=== PATIENT | female | born 1995 | race Caucasian/White ===

== ENCOUNTER → 2016-10-28 | Outpatient (CLI) | payer OTHER ==
--- NOTE | 2016-10-28 11:53 | PCVCIMAG ---
APPROVED REPORT Study performed: 10/28/2016 08:56:33 EXAM: Comprehensive 2D, Doppler, and color-flow Echocardiogram Patient Location: Echo lab Status: routine Other Information Study Quality: Good Indications Palpitations Chest Pain connective tissue disorder 2D Dimensions IVSd: 6.70 (7-11mm)LVOT Diam: 20.15 (18-24mm) LVDd: 39.82 mm PWd: 7.64 (7-11mm) LVDs: 23.69 (25-40mm) Left Atrium: 24.45 (27-40mm) Aortic Root: 21.17 mm LV Single Plane 4CH: 53.69 % LV Single Plane 2CH: 61.16 %Wilkins's LVEF: 57.42 % Biplane EF: 58.3 % Volumes Left Atrial Volume (Systole) Single Plane 4CH: 30.85 mLSingle Plane 2CH: 24.24 mL LA ESV Index: 17.00 mL/m2 Aortic Valve AoV Peak Fred.: 1.32 m/s AO Peak Gr.: 6.95 mmHgLVOT Max P.91 mmHg LVOT Max V: 0.85 m/s RIKI Vmax: 2.06 cm2 Mitral Valve E/A Ratio: 1.5 MV Decel. Time: 154.01 ms MV E Max Fred.: 1.20 m/s MV A Fred.: 0.82 m/s IVRT: 58.82 ms Pulmonary Valve PV Peak Fred.: 0.82 m/sPV Peak Gr.: 2.68 mmHg Pulmonary Vein P Vein S: 0.43 m/sP Vein A: 0.35 m/s P Vein D: 0.61 m/sP Vein A Dur.: 76.1 msec P Vein S/D Ratio: 0.70 Tricuspid Valve TR Peak Fred.: 2.27 m/s TR Peak Gr.: 20.57 mmHg TV Vmax: 0.86 m/s Left Ventricle The left ventricle is normal size. There is normal LV segmental wall motion. There is normal left ventricular wall thickness. Left ventricular systolic function is normal. LVEF is 55-60%. The left ventricular diastolic function is normal. Right Ventricle The right ventricle is normal size. The right ventricular systolic function is normal. Atria The left atrium size is normal. The right atrium size is normal. Aortic Valve The aortic valve is normal in structure. No aortic regurgitation is present. There is no aortic valvular stenosis. Mitral Valve The mitral valve is normal in structure. There is trivial mitral valve regurgitation noted. No evidence of mitral valve stenosis. Tricuspid Valve The tricuspid valve is normal in structure. There is no tricuspid valve regurgitation noted. Pulmonic Valve The pulmonary valve is normal in structure. There is no pulmonic valvular regurgitation. Great Vessels The aortic root is normal in size. Ascending aorta is not well visualized. Aortic arch is normal in caliber. IVC is normal in size and collapses with >50% inspiration Pericardium There is no pericardial effusion. <Conclusion> Left ventricular systolic function is normal. There is normal LV segmental wall motion. LVEF 55-60%. The left ventricular diastolic function is normal. Valvular heart disease was absent. No significant regurgitant or stenotic lesions There is no pericardial effusion.
== END | disposition home or self-care (01) ==
LOC: PCVCIMAG 08:25
PROVIDERS: ATTEND Internal Medicine
DX: I34.0 Nonrheumatic mitral (valve) insufficiency (principal); L94.9 Localized connective tissue disorder, unspecified
CPT/HCPCS: 93306